=== PATIENT | female | born 1985 ===

== ENCOUNTER 2018-02-21 07:05 | Inpatient (IN) | payer BC ==
[~2018-02-21] VITALS: Ht 170.2 cm; Wt 115.0 kg
[2018-02-21] VITALS (53 sets, daily range): BP systolic 92–131; BP diastolic 46–78; PULSE 85–127; TEMP 98.3–99.4
[~2018-02-21 07:05] MED LIST: IBU600 MG PO; PERCOCET 325 MG1 TA2 PO; PRENATAL1 TA7 PO
[2018-02-21 08:35] LABS: BASO % 0.2 % (0.0-2.0); GRAN # 7.9 (1.4-6.5); GRAN % 72.4 % (42.2-75.2); LYMPH # 2.2 (1.2-3.4); LYMPH % 19.7 % (20.0-51.0); MEAN CELL VOLUME 85 fl (80.0-100.0); MEAN CORPUSCULAR HGB CONC 31 g/dl (33.0-37.0); MEAN PLATELET VOLUME 11.8 fl (7.4-10.4); MONO # 0.8 (0.1-0.6); MONO % 7.2 % (1.7-9.3); PLATELET COUNT 268 K/mm3 (130-400); RED BLOOD COUNT 3.54 M/mm3 (4.10-5.30); REDCELL DISTRIBUTION WIDTH-CV 14.6 % (11.5-14.5)
[2018-02-21 08:37] LABS: HEMATOCRIT 29.9 % (37.0-47.0); HEMOGLOBIN 9.4 g/dl (12.5-16.0); MEAN CORPUSCULAR HEMOGLOBIN 27 pg (27.0-31.0)
[2018-02-22 04:30] VITALS: BP 107/58; PULSE 98; TEMP 98.1
[2018-02-22] MEDS ORDERED: IBU800 M1 PO (07:43)
[2018-02-22 08:30] VITALS: BP 129/65; PULSE 100; TEMP 98.4
[2018-02-22 12:25] VITALS: BP 116/86; PULSE 102; TEMP 97.8
[2018-02-22 16:40] VITALS: BP 113/66; PULSE 98; TEMP 98
[2018-02-22 19:55] VITALS: BP 121/48; PULSE 100; TEMP 98
[2018-02-23 08:00] VITALS: BP 129/88; PULSE 90; TEMP 98
[2018-02-23 16:34] VITALS: BP 132/91; PULSE 90; TEMP 98.2
[2018-02-23 17:15] VITALS: BP 130/83
[2018-02-23 19:05] VITALS: BP 135/91; PULSE 92; TEMP 98.2
== END 2018-02-23 19:40 | disposition home or self-care (01) | DRG 807 ==
LOC: LDR 07:05 → OB 22:00
PROVIDERS: Student in an Organized Health Care Education/Training Program
PROC: 10E0XZZ Delivery of Products of Conception, External Approach (ICD-10-PCS; principal; 2018-02-21)
PROC: 10907ZC Drainage of Amniotic Fluid, Therapeutic from Products of Conception, Via Natural or Artificial Opening (ICD-10-PCS; 2018-02-21)
PROC: 3E033VJ Introduction of Other Hormone into Peripheral Vein, Percutaneous Approach (ICD-10-PCS; 2018-02-21)
DX: O99.02 Anemia complicating childbirth (principal); Z37.0 Single live birth; D64.9 Anemia, unspecified; Z3A.39 39 weeks gestation of pregnancy; O99.214 Obesity complicating childbirth; O99.824 Streptococcus B carrier state complicating childbirth
CPT/HCPCS: J2405; J2540; J2590; J2795; J7120